=== PATIENT | female | born 1940 | race Caucasian/White ===

== ENCOUNTER 2021-06-24 12:22 | Emergency (ER) | payer MEDICARE, OTHER ==
[~2021-06-24] VITALS: Ht 165.1 cm; Wt 81.0 kg
[~2021-06-24 12:22] MED LIST: AMIT50TA3 PO; ASPI-1071 PO; BUME1TAB8 PO; CHLO50TA PO; FLUO-81 PO; FURO-150 PO; HYDR-4069 PO; LORA10TA7 PO; LOSA50TA64 PO; MONT-40 PO; POTA-207 PO; PRAV80TA3 PO; PRED20TA PO
[2021-06-24] MEDS ORDERED: normal saline 1000ML IV soln IVB ONE (12:40)
[2021-06-24] MEDS ORDERED: pantoprazole IV 80 MG in normal saline 100ml IV soln 100 ML IV ONE (12:40)
[2021-06-24] MEDS ORDERED: pantoprazole IV 40 MG in normal saline 100ml IV soln 100 ML IV ONE ×2 (12:48→12:50)
[2021-06-24 13:05] LABS: BASOPHILS % (AUTO) 0.1 % (0-1); EOSINOPHILS % (AUTO) 0 % (0-6); HEMATOCRIT 33.4 % (35.0-45.0); HEMOGLOBIN 11.3 g/dl (12.0-16.0); LYMPHOCYTES # (AUTO) 1.6 X10'3 (1.1-4.8); LYMPHOCYTES % (AUTO) 19.1 % (21-51); MEAN CORPUSCULAR HEMOGLOBIN 29.7 PG (27.0-31.0); MEAN CORPUSCULAR HGB CONC 33.7 g/dL (33.0-36.5); MEAN CORPUSCULAR VOLUME 88.2 FL (78-98); MONOCYTES # (AUTO) 0.6 X10'3 (0-0.9); MONOCYTES % (AUTO) 6.9 % (2-12); NEUTROPHILS # (AUTO) 6.4 X10'3 (1.8-7.7); NEUTROPHILS % (AUTO) 73.9 % (42-75); PLATELET COUNT 398 X10'3 (140-440); RED BLOOD COUNT 3.79 X10'6 (4.20-5.60); RED CELL DISTRIBUTION WIDTH 15.4 % (11.5-14.5); WHITE BLOOD COUNT 8.6 X10'3 (4.5-11.0)
[2021-06-24 13:19] LABS: ALANINE AMINOTRANSFERASE 27 U/L (12-78); ALBUMIN 2.3 G/DL (3.4-5.0); ALBUMIN/GLOBULIN RATIO 0.4 (1.1-1.5); ALKALINE PHOSPHATASE 61 IU/L (46-116); ANION GAP 12 (8-16); ASPARTATE AMINO TRANSFERASE 35 U/L (10-37); BILIRUBIN,TOTAL 0.2 MG/DL (0.1-1.0); BLOOD UREA NITROGEN 40 MG/DL (7-18); BUN/CREATININE RATIO 19.8 (6.6-38.0); CHLORIDE 95 MMOL/L (99-107); CREATININE 2.02 MG/DL (0.40-0.90); SODIUM 135 MMOL/L (135-145); TOTAL CARBON DIOXIDE 28.2 MMOL/L (24-32); TOTAL PROTEIN 7.7 G/DL (6.4-8.2); eGFR 24 ML/MIN
[2021-06-24 13:20] LABS: GLUCOSE 119 MG/DL (70-104)
[2021-06-24 13:23] LABS: POTASSIUM 2.9 MMOL/L (3.5-5.1)
[2021-06-24] MEDS ORDERED: potassium Cl 20 mEq SR tablet PO STA ×2 (13:24→13:30)
--- NOTE | 2021-06-24 14:18 | NUR ---
provider at bedside
[2021-06-24] MEDS ORDERED: PANT-47 PO (15:21)
[2021-06-24 16:17] LABS: CLARITY,URINE CLEAR (Clear); COLOR,URINE YELLOW (Yellow); GLUCOSE, URINE NEGATIVE (Neg); KETONES,URINE NEGATIVE (Neg); LEUKOCYTE ESTERASE ,URINE NEGATIVE (Neg); NITRITES, URINE NEGATIVE (Neg); OCCULT BLOOD,URINE SMALL (Neg); PH,URINE 6.5 (4.8-8.0); PROTEIN,URINE >=300 mg/dl (Neg); UROBILINOGEN,URINE 0.2 E.U/dL (0.2-1.0)
[2021-06-24 16:19] LABS: UA COLLECTION TYPE CLN CATCH MIDSTREAM
[2021-06-24] MEDS ORDERED: ondansetron/PF 4mg/2ml inj IV ONE (16:20)
[2021-06-24 16:27] LABS: BACTERIA,URINE 1+ /HPF (Neg); MUCUS STRANDS FEW /LPF (Neg); SQUAMOUS EPITHELIAL CELL,UR MODERATE /LPF (FEW); WBC,URINE 0-4 /HPF (0-4)
[2021-06-24] MEDS ORDERED: POTASSIUM BICARB 20meq eff tab 20 MEQ TABLET.EFF PO SCH (17:20)
[2021-06-24] MEDS ORDERED: pantoprazole 40mg Tablet.DR PO SCH (18:14)
[2021-06-24 18:35] VITALS: BP 142/87
== END 2021-06-24 19:34 | disposition home or self-care (01) ==
LOC: ER 12:23
DX: K92.2 Gastrointestinal hemorrhage, unspecified (principal); R19.7 Diarrhea, unspecified; R07.89 Other chest pain; R05.9 Cough, unspecified; R53.1 Weakness; R06.02 Shortness of breath; R42 Dizziness and giddiness; R10.13 Epigastric pain; I50.9 Heart failure, unspecified; Z88.6 Allergy status to analgesic agent; Z88.5 Allergy status to narcotic agent; Z79.82 Long term (current) use of aspirin; Z79.899 Other long term (current) drug therapy
CPT/HCPCS: 36415; 71045; 80053; 81001; 85025; 85610; 86885; 86900; 86901; 93005; 99285; J7030